=== PATIENT | female | born 1965 | race Caucasian/White ===

== ENCOUNTER → 2022-01-21 | Day surgery (SDC) | payer BC ==
[~2022-01-21] MED LIST: Midazolam 1 MG/ML 2 ML SDV ONE; Propofol 200 MG/20 ML SDV ONE; fentaNYL 100 MCG/2 ML SDV ONE
[2022-01-21] MEDS: Lactated Ringers 1,000 ML IV SCH (07:23)
== END ==
LOC: JP.SDS 06:36
PROVIDERS: ATTEND Family Medicine
DX: Z12.11 Encounter for screening for malignant neoplasm of colon (principal); D12.2 Benign neoplasm of ascending colon; D12.8 Benign neoplasm of rectum; K64.4 Residual hemorrhoidal skin tags; K21.9 Gastro-esophageal reflux disease without esophagitis
CPT/HCPCS: 45380; 88305; J2250; J2704; J3010; J7120

== ENCOUNTER 2022-09-17 07:59 | Day surgery (SDC) | payer BC ==
[2022-09-17] MEDS ORDERED: Sodium Chloride 0.9% 1,000 ML IV SCH (08:00)
[2022-09-17] MEDS ORDERED: Propofol 200 MG/20 ML SDV ONE (10:01)
[2022-09-17] MEDS ORDERED: Midazolam 1 MG/ML 2 ML SDV ONE (10:01)
[2022-09-17] MEDS ORDERED: fentaNYL 100 MCG/2 ML SDV ONE (10:01)
[2022-09-17] MEDS ORDERED: Lidocaine 1% 2 ML ONE (10:26)
== END 2022-09-17 12:03 | disposition home or self-care (01) ==
LOC: JP.SDS 07:59
PROVIDERS: ATTEND Surgery
DX: K92.2 Gastrointestinal hemorrhage, unspecified (principal); K64.8 Other hemorrhoids; E78.5 Hyperlipidemia, unspecified; K21.9 Gastro-esophageal reflux disease without esophagitis; Z88.2 Allergy status to sulfonamides; Z88.1 Allergy status to other antibiotic agents; Z88.6 Allergy status to analgesic agent; Z79.899 Other long term (current) drug therapy
CPT/HCPCS: 45398; J2250; J2704; J3010; J7030

== ENCOUNTER 2025-05-06 07:59 | Day surgery (SDC) | payer BC ==
[2025-05-06] MEDS ORDERED: Midazolam 1 MG/ML 2 ML SDV ONE (08:21)
[2025-05-06] MEDS ORDERED: Propofol 200 MG/20 ML SDV ONE ×2 (08:22→09:58)
[2025-05-06] MEDS ORDERED: fentaNYL 50 MCG/ML SDV ONE (08:22)
[2025-05-06] MEDS: Lactated Ringers 1,000 ML IV SCH (08:58)
== END 2025-05-06 11:20 | disposition home or self-care (01) ==
LOC: JP.SDS 07:59
PROVIDERS: ATTEND Surgery
DX: Z12.11 Encounter for screening for malignant neoplasm of colon (principal); K31.7 Polyp of stomach and duodenum; D12.3 Benign neoplasm of transverse colon; D12.4 Benign neoplasm of descending colon; E78.00 Pure hypercholesterolemia, unspecified; I10 Essential (primary) hypertension; Z88.8 Allergy status to other drugs, medicaments and biological substances; Z88.2 Allergy status to sulfonamides; Z88.1 Allergy status to other antibiotic agents; Z79.899 Other long term (current) drug therapy
CPT/HCPCS: 00813; 43239; 43251; 45380; 45385; J2250; J2704; J3010; J7120